=== PATIENT | male | born 1980 | race Caucasian/White ===

== ENCOUNTER 2025-03-19 21:48 | Emergency (ER) | payer BC, SELFPAY ==
[2025-03-19 21:52] VITALS: BP 126/101
[2025-03-19 21:57] VITALS: BP 149/103
[2025-03-19 22:18] VITALS: BMI 26.3
[2025-03-19 22:24] VITALS: BP 133/85
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
== END 2025-03-19 23:43 | disposition home or self-care (01) ==
LOC: EMR 21:48
PROVIDERS: EMERGENCY PHYSICIAN Emergency Medicine; FAMILY PHYSICIAN Family Medicine
DX: S01.511A Laceration without foreign body of lip, initial encounter (principal); W50.0XXA Accidental hit or strike by another person, initial encounter; J45.909 Unspecified asthma, uncomplicated; F17.200 Nicotine dependence, unspecified, uncomplicated
CPT/HCPCS: 12051; 99283